=== PATIENT | female | born 1975 | race Caucasian/White ===

== ENCOUNTER 2018-02-06 10:14 | Emergency (ER) | payer OTHER ==
--- NOTE | 2018-02-06 11:51 | RAD ---
RIGHT ANKLE THREE VIEWS: History: Right ankle pain. Injury. FINDINGS/IMPRESSION: The ankle mortise is maintained. No acute fracture or dislocation is seen. Soft tissue swelling is pr esent. Posterior calcaneal spurs are present. Os trigonum is again noted as on the exam of 11-05-06. POS: [facility]
[2018-02-06] MEDS ORDERED: Acetaminophen/Codeine 30-300mg Tablet ONE (13:22)
== END 2018-02-06 13:28 | disposition home or self-care (01) ==
LOC: ERS 10:14
DX: S93.411A Sprain of calcaneofibular ligament of right ankle, initial encounter (principal); F41.9 Anxiety disorder, unspecified; F31.9 Bipolar disorder, unspecified; Z79.84 Long term (current) use of oral hypoglycemic drugs; Z79.899 Other long term (current) drug therapy; X50.1XXA Overexertion from prolonged static or awkward postures, initial encounter; Y93.01 Activity, walking, marching and hiking

== ENCOUNTER 2018-02-06 15:49 | Outpatient (CLI) | payer OTHER | END 2018-02-06 15:50 | disposition home or self-care (01) | LOC: BICMAMMO 15:49 | PROVIDERS: ATTEND Family Medicine | DX: Z12.31 Encounter for screening mammogram for malignant neoplasm of breast (principal); Z80.3 Family history of malignant neoplasm of breast | CPT/HCPCS: 77063; 77067 ==

== ENCOUNTER 2019-02-27 11:47 | Outpatient (CLI) | payer OTHER ==
--- NOTE | 2019-02-27 12:16 | RAD ---
FExam: Lumbar spine 2 views COMPARISON: 12/30/2011 HISTORY: Pain. Transverse process fracture at L1 and L2. FINDINGS: 5 lumbar type vertebral bodies. Lumbar spine vertebral body height is maintained. No fractu re or malalignment. Pression: No radiographic evidence of a transverse process fracture. Additional imaging if clinically warranted.
== END 2019-02-27 11:48 | disposition home or self-care (01) ==
LOC: BICRAD 11:47
PROVIDERS: ATTEND Family Medicine
DX: M54.5 Low back pain (principal)
CPT/HCPCS: 72100

== ENCOUNTER 2019-04-28 14:08 | Outpatient (CLI) | payer OTHER | END 2019-04-28 14:09 | disposition home or self-care (01) | LOC: DTY/OP 14:08 | PROVIDERS: ATTEND Surgery | DX: E66.01 Morbid (severe) obesity due to excess calories (principal) | CPT/HCPCS: 97802 ==

== ENCOUNTER 2019-05-06 16:32 | Emergency (ER) | payer OTHER ==
[2019-05-06] MEDS ORDERED: Acetaminophen 500 MG TAB ONE (16:44)
--- NOTE | 2019-05-06 17:10 | RAD ---
3 views right hand. HISTORY: Complaining of right hand pain. AP, lateral and oblique views right hand obtained. 3 views right hand demonstrates no evidence of right hand fractures, subluxations or bony lesions. IMPRESSION: normal 3 views right hand.
== END 2019-05-06 17:30 | disposition home or self-care (01) ==
LOC: ERS 16:32
DX: S63.601A Unspecified sprain of right thumb, initial encounter (principal); F17.290 Nicotine dependence, other tobacco product, uncomplicated; W22.8XXA Striking against or struck by other objects, initial encounter

== ENCOUNTER 2019-06-22 15:41 | Outpatient (CLI) | payer OTHER ==
--- NOTE | 2019-06-22 17:27 | RAD ---
SI JOINTS: HISTORY: SI joint pain. 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 No evidence for periarticular bon y erosive or destructive change. 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 IMPRESSION: 1. Slight diffuse sacroiliac joint sclerotic changes, nonspecific. 2. No kandice ankylosis or periarticular bony erosive or destructive change. POS: [facility]
== END 2019-06-22 15:42 | disposition home or self-care (01) ==
LOC: BICRAD 15:41
PROVIDERS: ATTEND Family Medicine
DX: M25.552 Pain in left hip (principal); M53.3 Sacrococcygeal disorders, not elsewhere classified
CPT/HCPCS: 72202

== ENCOUNTER 2023-07-15 06:03 | Day surgery (SDC) | payer OTHER ==
[2023-07-11 14:37] VITALS: BMI 50.3
[2023-07-15] MEDS ORDERED: PROPOFOL 200 MG/20 ML VIAL ONE (08:51)
[2023-07-15] MEDS ORDERED: Lidocaine 1% PF 5 ML VIAL ONE (08:51)
[2023-07-15] MEDS ORDERED: Glucagon 1 MG/ML KIT ONE (09:08)
== END 2023-07-15 11:00 | disposition home or self-care (01) ==
LOC: SDC 06:03
PROVIDERS: ATTEND Internal Medicine
PROC: 0DBH8ZZ Excision of Cecum, Via Natural or Artificial Opening Endoscopic (ICD-10-PCS; principal; 2023-07-15)
PROC: 0DJ08ZZ Inspection of Upper Intestinal Tract, Via Natural or Artificial Opening Endoscopic (ICD-10-PCS; principal; 2023-07-15)
DX: D12.0 Benign neoplasm of cecum (principal); K22.10 Ulcer of esophagus without bleeding; K44.9 Diaphragmatic hernia without obstruction or gangrene; K21.00 Gastro-esophageal reflux disease with esophagitis, without bleeding; K64.8 Other hemorrhoids; F41.9 Anxiety disorder, unspecified; M19.90 Unspecified osteoarthritis, unspecified site; F32.A Depression, unspecified; N20.0 Calculus of kidney; Z90.49 Acquired absence of other specified parts of digestive tract; F17.210 Nicotine dependence, cigarettes, uncomplicated; Z79.899 Other long term (current) drug therapy
CPT/HCPCS: 88305; J1611; J2704